=== PATIENT | female | born 1970 | race Caucasian/White ===

== ENCOUNTER 2018-09-25 19:24 | Observation (INO) | payer OTHER ==
--- NOTE | 2018-09-25 19:41 | Emergency Department Record ---
History of Present Illness - General Chief Complaint: Overdose Stated Complaint: TOOK TOO MANY OF HER MEDS Time Seen by Provider: 09/25/18 19:26 Source: Patient Mode of Arrival: Ambulatory Limitations: No limitations - History of Present Illness Initial Comments: 47 yo female presents to ED for evaluation after taking approximately 10 tablets of celexa this evening while having a disagreement with her significant other. Patient denies suicide attempt, when asked if she was trying to harm herself reports "I don't know, I think it was pretty stupid". Patient reports a history of depression, denies health problems at her baseline. MD Complaint: Intentional overdose Onset/Timin -: Hour(s) - [place] Coma Scale Eye Response: (4) Open spontaneously Motor Response: (6) Obeys commands Verbal Response: (5) Oriented Noah Total: 15 Substance Ingested: Celexa Number of Pills Ingested: 10 Time of Ingestion: 05:00 - Detail Intent: Unwilling to say How Overdose Was Discovered: Family/friend present at time Context: Accidental Overdose: Other Context: Intentional Overdose: Relationship problems Treatments Prior to Arrival: None - Related Data Home Medications Medication Instructions Recorded Confirmed Last Taken Citalopram Hydrobromide 10 mg PO DAILY 09/25/18 09/25/18 09/25/18 [Citalopram HBr] Allergies Allergy/AdvReac Type Severity Reaction Status Date / Time No Known Drug Allergies Allergy Verified 09/25/18 19:40 Review of Systems Constitutional: Denies: Chills, Fever, Malaise, Night sweats Eyes: Denies: Eye discharge, Eye pain ENT: Denies: Congestion, Ear pain, Epistaxis Respiratory: Denies: Cough, Dyspnea Cardiovascular: Denies: Chest pain, Dyspnea on exertion Endocrine: Denies: Fatigue, Heat or cold intolerance Gastrointestinal: Denies: Abdominal pain, Nausea, Vomiting Genitourinary: Denies: Incontinence, Retention Musculoskeletal: Denies: Arthralgia, Back pain, Gout, Joint swelling Skin: Denies: Bruising, Change in color Neurological: Denies: Abnormal gait, Confusion, Headache, Seizure Psychiatric: Reports: Depression. Denies: Anxiety Hematological/Lymphatic: Denies: Anemia, Blood Clots Physical Exam - General General Appearance: Alert, Oriented x3, Cooperative, Mild distress Limitations: No limitations - Head Head exam: Atraumatic, Normocephalic, Normal inspection Head exam detail: negative: Abrasion, Contusion, Thompson's sign, General tenderness, Hematoma, Laceration - Eye Eye exam: Normal appearance. negative: Conjunctival injection, Periorbital swelling, Periorbital tenderness, Scleral icterus - ENT Ear exam: negative: Auricular hematoma, Auricular trauma Nasal Exam: negative: Active bleeding, Discharge, Dried blood, Foreign body Mouth exam: negative: Drooling, Laceration, Muffled voice, Tongue elevation - Neck Neck exam: Normal inspection. negative: Meningismus, Tenderness - Respiratory Respiratory exam: Normal lung sounds bilaterally. negative: Rales, Respiratory distress, Rhonchi, Stridor - Cardiovascular Cardiovascular Exam: Regular rate, Normal rhythm, Normal heart sounds - GI/Abdominal GI/Abdominal exam: Soft. negative: Rebound, Rigid, Tenderness - Rectal Rectal exam: Deferred - exam: Deferred - Extremities Extremities exam: Normal inspection. negative: Pedal edema, Tenderness - Back Back exam: Denies: CVA tenderness (R), CVA tenderness (L) - Neurological Neurological exam: Alert, Normal gait, Oriented X3 - Psychiatric Psychiatric exam: Normal affect, Normal mood - Skin Skin exam: Normal color. negative: Abrasion Type of lesion: negative: abrasion Course - Reevaluation(s) Reevaluation #1: 09/25/18 19:50 EKG: NSR 94 Normal intervals Normal axis No acute ST-T changes are present on examination. Reevaluation #2: 09/25/18 20:31 Laboratory studies were reviewed and are grossly unremarkable for an acute process. Reevaluation #3: 09/25/18 20:53 Case was discussed with Kimberly Borja NP, will accept admission for medical clearance as the half-life for citalapram is approximately 35 hours followed by transfer for psychiatric evaluation likely tomorrow if medically cleared. Patient is resting comfortably at this time, updated on all results. Application has been completed by the patient's SO Certification completed by myself. Will admit with 1:1 monitoring. Medical Decision Making - Lab Data Result diagrams: 09/25/18 19:48 09/25/18 19:48 Disposition Disposition: Admit Clinical Impression: Intentional overdose of selective serotonin reuptake inhibitor (SSRI) Qualifiers: Encounter type: initial encounter Qualified Code(s): T43.222A - Poisoning by selective serotonin reuptake inhibitors, intentional self-harm, initial encounter Disposition: Still a Patient at [facility] Decision to Admit: Admit from ER Decision to Admit Date: 09/25/18 Decision to Admit Time: 20:54 Time of Disposition: 20:54 Quality - Quality Measures Quality Measures: N/A - Blood Pressure Screening Does Patient Have Any of the Following: No Blood Pressure Classification: Pre-Hypertensive BP Reading Systolic Measurement: 124 Diastolic Measurement: 75 Screening for High Blood Pressure: < Pre-Hypertensive BP, F/U Documented > [ G8950] Pre-Hypertensive Follow-up Interventions: Referral to alternative/primary care provider.
[2018-09-25 19:55] LABS: BASO % 0.5 % (0-6); GRAN % 64.3 % (47-80); HEMATOCRIT 38.2 % (35.0-47.0); HEMOGLOBIN 13.2 gm/dl (11.6-16.0); LYMPH % 23.4 % (16-45); MEAN CELL VOLUME 89.3 fl (81-97); MEAN CORPUSCULAR HEMOGLOBIN 30.8 pg (27-33); MEAN CORPUSCULAR HGB CONC 34.6 g/dl (32-36); MEAN PLATELET VOLUME 10.2 fl (7.4-10.4); MONO % 9.8 % (0-9); PLATELET COUNT 250 K/uL (130-400); RED BLOOD COUNT 4.28 M/uL (3.80-5.40); RED CELL DISTRIBUTION WIDTH 12.3 % (11.5-14.5); WHITE BLOOD COUNT W/O DIFF 6.4 K/uL (4.2-12.2)
[2018-09-25 20:08] LABS: BLOOD UREA NITROGEN 13 mg/dL (6-20); CREATININE 0.7 mg/dL (0.5-0.9); EST GLOMERULAR FILTRATION RATE > 60 mL/min
[2018-09-25 20:09] LABS: TOTAL PROTEIN 7.5 g/dL (6.6-8.7)
[2018-09-25 20:11] LABS: GLUCOSE,RANDOM 102 mg/dL (74-109)
[2018-09-25 20:14] LABS: ALB/GLOB RATIO 1.6 (1.1-1.8); ALBUMIN 4.6 g/dL (4.0-5.0); ALKALINE PHOSPHATASE 53 U/L (35-104); ALT/SGPT 23 U/L (<33); AST/SGOT 22 U/L (10.0-35.0)
[2018-09-25 20:15] LABS: ACETAMINOPHEN < 5.0 ug/mL (10.0-30.0); SALICYLATE 0.6 mg/dL (2.8-20)
[2018-09-25 20:25] LABS: THYROID STIMULATING HORMONE 2.13 uIU/mL (0.270-4.20)
[2018-09-25 20:43] LABS: AMPHETAMINE SCREEN URINE NOT DETECTED; BARBITURATE SCREEN URINE NOT DETECTED; BENZODIAZEPINE SCREEN URINE NOT DETECTED; COCAINE SCREEN URINE NOT DETECTED; METHADONE SCREEN URINE NOT DETECTED; METHAMPHETAMINE SCREEN NOT DETECTED; OPIATE SCREEN URINE NOT DETECTED; OXYCODONE SCREEN URINE NOT DETECTED; PHENCYCLIDINE SCREEN URINE NOT DETECTED; PROPOXYPHENE SCREEN URINE NOT DETECTED; THC SCREEN URINE NOT DETECTED; TRICYCLIC ANTIDEPRESSANT SCRN NOT DETECTED
[2018-09-26] MEDS: ACETAMINOPHEN 500 MG TABLET PO PRN ×2 (02:42→10:59)
[2018-09-26 09:26] LABS: BASO % 0.4 % (0-6); EOS % 1.8 % (0-6); GRAN % 67.8 % (47-80); HEMATOCRIT 39.2 % (35.0-47.0); HEMOGLOBIN 13.4 gm/dl (11.6-16.0); LYMPH % 23.6 % (16-45); MEAN CELL VOLUME 90.1 fl (81-97); MEAN CORPUSCULAR HEMOGLOBIN 30.8 pg (27-33); MEAN CORPUSCULAR HGB CONC 34.2 g/dl (32-36); MEAN PLATELET VOLUME 10.3 fl (7.4-10.4); MONO % 6.4 % (0-9); PLATELET COUNT 255 K/uL (130-400); RED BLOOD COUNT 4.35 M/uL (3.80-5.40); RED CELL DISTRIBUTION WIDTH 12.4 % (11.5-14.5)
[2018-09-26 09:34] LABS: ALB/GLOB RATIO 1.5 (1.1-1.8); ALBUMIN 4.4 g/dL (4.0-5.0); ALKALINE PHOSPHATASE 53 U/L (35-104); ALT/SGPT 18 U/L (<33); AST/SGOT 21 U/L (10.0-35.0); BLOOD UREA NITROGEN 13 mg/dL (6-20); CREATININE 0.6 mg/dL (0.5-0.9); EST GLOMERULAR FILTRATION RATE > 60 mL/min; GLUCOSE,RANDOM 204 mg/dL (74-109); TOTAL PROTEIN 7.3 g/dL (6.6-8.7)
--- NOTE | 2018-09-26 10:50 | History & Physical ---
History of Present Illness - Date of Service Date of Service for History & Physical: 09/26/18 - History of Present Illness Admitting Diagnosis: Intentional SSRI overdose History of Present Illness: 47 year old female patient presented to ED for evaluation after taking 10 tablets of 10mg Celexa [employer]. Patient states she was having an argument with her significant other. Patient denied suicidal ideations or attempt at that time, stating she wasn't sure what her intentions were for taking the tablets. Patient denied any nausea, vomiting, abdominal pain, palpitations, tachycardia, shaking, or headache. Patient's past medical history is significant for depression, with no previous inpatient psych admits or suicidal attempts. PCP: Danette ROY ED Course: EKG: NSR rate 94; normal intervals; normal axis; no acute ST-T changes CBC, CMP, alcohol, acetaminophen, salicylates, and urine drug screen all negative Asymptomatic 09/26/18: Patient A&O x 4, ambulating in room. Patient cooperative with staff. Patient denies any suicidal thoughts or ideations at this time. Patient remains asymptomatic, VS stable. Poison control contacted and states patient is safe to medically clear at this time if she has remained asymptomatic. A petition and cert was completed by ED staff upon arrival. Patient has been placed on 1:1 safety observation. Currently working on psychiatric placement for patient at this time. Travel Screening - Travel/Exposure Within Last 30 Days Have you traveled within the last 30 days?: No - Travel/Exposure Within Last Year Have you traveled outside the [place] in the last year?: No - Additonal Travel Details Have you been exposed to anyone with a communicable illness?: No - Travel Symptoms Symptom Screening: None Review of Systems Reviewed: No additional complaints except as noted below Constitutional: Denies: Chills, Fever, Malaise, Night sweats Eyes: Denies: Eye discharge, Eye pain ENT: Denies: Congestion, Ear pain, Epistaxis Respiratory: Denies: Cough, Dyspnea Cardiovascular: Denies: Chest pain, Dyspnea on exertion Endocrine: Denies: Fatigue, Heat or cold intolerance Gastrointestinal: Denies: Abdominal pain, Nausea, Vomiting Genitourinary: Denies: Incontinence, Retention Musculoskeletal: Denies: Arthralgia, Back pain, Gout, Joint swelling Skin: Denies: Bruising, Change in color Neurological: Denies: Abnormal gait, Confusion, Headache, Seizure Psychiatric: Reports: Depression. Denies: Anxiety Hematological/Lymphatic: Denies: Anemia, Blood Clots Past Medical History - SOCIAL HISTORY Smoking Status: Never smoker Alcohol Use: None Drug Use: None - RESPIRATORY Hx Respiratory Disorders: No - CARDIOVASCULAR Hx Cardio Disorders: Yes Hx Irregular Heartbeat: Yes - NEURO Hx Neuro Disorders: No - GI Hx GI Disorders: No - Hx Genitourinary Disorders: No - ENDOCRINE Hx Endocrine Disorders: No - MUSCULOSKELETAL Hx Musculoskeletal Disorders: No - PSYCH Hx Psych Problems: Yes Hx Anxiety: Yes Hx Behavior Problems: No Hx Depression: Yes Hx Emotional Abuse: No Hx Sexual Abuse: No Hx Suicide Attempt: No Major Depressive Episode: No Feelings of Hopelessness: No - HEMATOLOGY/ONCOLOGY Hx Hematology/Oncology Disorders: No Family Medical History Any Significant Family History?: Yes Hx Anxiety: Mother Hx Cancer: Father Hx Depression: Mother, Brother/Sister Hx Heart Disease: Father Hx Stroke: Father H&P Meds/Allergies - Allergies Allergies: Allergies Allergy/AdvReac Type Severity Reaction Status Date / Time No Known Drug Allergies Allergy Verified 09/25/18 19:40 - Home Medications Home Medications Medication Instructions Recorded Confirmed Last Taken Citalopram Hydrobromide 10 mg PO DAILY 09/25/18 09/25/18 09/25/18 [Citalopram HBr] - Active Medications Active Medications: Current Medications Acetaminophen (Tylenol 500mg Tab) 1,000 mg PO Q6H PRN PRN Reason: HEADACHE Last Admin: 09/26/18 02:42 Dose: 1,000 mg Physical Exam - Vital Signs Vital Signs: Vital Signs - Last 24 Hrs Temp Pulse Pulse Resp BP BP Pulse Ox 09/26/18 09:00 98.3 F 86 18 130/74 96 09/25/18 22:11 98.2 F 83 16 126/69 96 09/25/18 21:38 80 12 124/75 96 09/25/18 20:55 82 14 132/80 96 09/25/18 19:31 98.1 F 63 16 129/75 97 - General General Appearance: Alert, Oriented x3, Cooperative, No acute distress, Anxious Limitations: No limitations - Head Head exam: Atraumatic, Normocephalic, Normal inspection Head exam detail: negative: Abrasion, Contusion, Thompson's sign, General tenderness, Hematoma, Laceration - Eye Eye exam: Normal appearance. negative: Conjunctival injection, Periorbital swelling, Periorbital tenderness, Scleral icterus - ENT ENT exam: Mucous membranes moist Ear exam: Normal external inspection. negative: Auricular hematoma, Auricular trauma Nasal Exam: negative: Active bleeding, Discharge, Dried blood, Foreign body Mouth exam: Normal external inspection. negative: Drooling, Laceration, Muffled voice, Tongue elevation - Neck Neck exam: Normal inspection. negative: Meningismus, Tenderness - Respiratory Respiratory exam: Normal lung sounds bilaterally. negative: Rales, Respiratory distress, Rhonchi, Stridor - Cardiovascular Cardiovascular Exam: Regular rate, Normal rhythm, Normal heart sounds Peripheral Pulses: 2+: Radial (R), Radial (L) - GI/Abdominal GI/Abdominal exam: Soft. negative: Rebound, Rigid, Tenderness - Rectal Rectal exam: Deferred - exam: Deferred - Extremities Extremities exam: Normal inspection. negative: Pedal edema, Tenderness - Back Back exam: Denies: CVA tenderness (R), CVA tenderness (L) - Neurological Neurological exam: Alert, Normal gait, Oriented X3 - Psychiatric Psychiatric exam: Normal affect, Normal mood - Skin Skin exam: Normal color. negative: Abrasion Type of lesion: negative: abrasion Results - Labs Result Diagrams: 09/26/18 09:10 09/26/18 09:10 Labs Last 24 Hours: Laboratory Results - last 24 hr 09/25/18 09/25/18 09/25/18 19:48 19:48 20:07 WBC 6.4 RBC 4.28 Hgb 13.2 Hct 38.2 MCV 89.3 MCH 30.8 MCHC 34.6 RDW 12.3 Plt Count 250 MPV 10.2 Gran % 64.3 Lymphocytes % 23.4 Monocytes % 9.8 H Eosinophils % 2.0 Basophils % 0.5 Sodium 142 Potassium 3.7 Chloride 104 Carbon Dioxide 26.0 Anion Gap 12.0 BUN 13 Creatinine 0.7 Estimated GFR > 60 Random Glucose 102 Calcium 9.3 Total Bilirubin 0.20 AST 22 ALT 23 Alkaline Phosphatase 53 Total Protein 7.5 Albumin 4.6 Globulin 2.9 Albumin/Globulin Ratio 1.6 TSH 2.13 Salicylates 0.6 L Urine Opiates Screen Not detected Ur Oxycodone Screen Not detected Urine Methadone Screen Not detected Ur Propoxyphene Screen Not detected Acetaminophen < 5.0 L Ur Barbituates Screen Not detected Ur Tricyclics Screen Not detected Ur Phencyclidine Scrn Not detected Ur Amphetamine Screen Not detected U Methamphetamines Scrn Not detected U Benzodiazepines Scrn Not detected Urine Cocaine Screen Not detected Urine Cannabis Screen Not detected Ethyl Alcohol 0.000 09/26/18 09/26/18 09:10 09:10 WBC 5.0 RBC 4.35 Hgb 13.4 Hct 39.2 MCV 90.1 MCH 30.8 MCHC 34.2 RDW 12.4 Plt Count 255 MPV 10.3 Gran % 67.8 Lymphocytes % 23.6 Monocytes % 6.4 Eosinophils % 1.8 Basophils % 0.4 Sodium 141 Potassium 3.8 Chloride 102 Carbon Dioxide 27.0 Anion Gap 12.0 BUN 13 Creatinine 0.6 Estimated GFR > 60 Random Glucose 204 H Calcium 9.4 Total Bilirubin 0.40 AST 21 ALT 18 Alkaline Phosphatase 53 Total Protein 7.3 Albumin 4.4 Globulin 2.9 Albumin/Globulin Ratio 1.5 TSH Salicylates Urine Opiates Screen Ur Oxycodone Screen Urine Methadone Screen Ur Propoxyphene Screen Acetaminophen Ur Barbituates Screen Ur Tricyclics Screen Ur Phencyclidine Scrn Ur Amphetamine Screen U Methamphetamines Scrn U Benzodiazepines Scrn Urine Cocaine Screen Urine Cannabis Screen Ethyl Alcohol VTE H&P Assessment - Risk for VTE Risk for VTE: No Risk Level: Low Risk Assessment Date: 09/26/18 Risk Assessment Time: 10:51 VTE Orders Placed or Will Be Placed: No VTE Reason for No Prophylaxis: Not Indicated Plan - Detailed Diagnosis and Plan (1) Intentional overdose of selective serotonin reuptake inhibitor (SSRI) Current Visit: Yes Status: Acute Qualifiers: Encounter type: initial encounter Qualified Code(s): T43.222A - Poisoning by selective serotonin reuptake inhibitors, intentional self-harm, initial encounter Base Code: T43.222A - POISN BY SLCTV SEROTONIN REUPTAKE INHIBTR, SELF-HARM, INIT Comment: 09/26/18: Intentional overdose of 10 tablets of 10mg Celexa 15 hours ago -CBC, CMP, acetaminophen, alcohol, salicylate, and urine drug screen negative -VS WNL -EKG WNL -Patient has remained asymptomatic -Petition and cert completed in ED -Patient placed on 1:1 safety observation -Patient denies suicidal thoughts or ideations -Working on psychiatric placement for patient at this time (2) DVT prophylaxis Current Visit: Yes Status: Acute Base Code: [id number] - Comment: 09/26/18: Patient low risk at this time -Encouraged continued ambulation in the halls and room (3) Full code status Current Visit: Yes Status: Acute Base Code: Z78.9 - OTHER SPECIFIED HEALTH STATUS Comment: 09/26/18: Patient is a full code this admission
--- NOTE | 2018-09-26 11:20 | Discharge Summary ---
Providers Discharge Summary Date: 09/26/18 Date of admission: 09/25/18 21:55 Expected Date of Discharge: 09/26/18 Attending physician: MARY CORLEY Primary care physician: YOLETTE MA D.O. Physical Exam - Vital Signs Vital Signs: Vital Signs - Last 24 Hrs Temp Pulse Pulse Resp BP BP Pulse Ox 09/26/18 09:00 98.3 F 86 18 130/74 96 09/25/18 22:11 98.2 F 83 16 126/69 96 09/25/18 21:38 80 12 124/75 96 09/25/18 20:55 82 14 132/80 96 09/25/18 19:31 98.1 F 63 16 129/75 97 - General General Appearance: Alert, Oriented x3, Cooperative, No acute distress Limitations: No limitations - Head Head exam: Atraumatic, Normocephalic, Normal inspection Head exam detail: negative: Abrasion, Contusion, Thompson's sign, General tenderness, Hematoma, Laceration - Eye Eye exam: Normal appearance. negative: Conjunctival injection, Periorbital swelling, Periorbital tenderness, Scleral icterus - ENT ENT exam: Mucous membranes moist Ear exam: Normal external inspection. negative: Auricular hematoma, Auricular trauma Nasal Exam: negative: Active bleeding, Discharge, Dried blood, Foreign body Mouth exam: Normal external inspection. negative: Drooling, Laceration, Muffled voice, Tongue elevation - Neck Neck exam: Normal inspection. negative: Meningismus, Tenderness - Respiratory Respiratory exam: Normal lung sounds bilaterally. negative: Rales, Respiratory distress, Rhonchi, Stridor - Cardiovascular Cardiovascular Exam: Regular rate, Normal rhythm, Normal heart sounds Peripheral Pulses: 2+: Radial (R), Radial (L) - GI/Abdominal GI/Abdominal exam: Soft. negative: Rebound, Rigid, Tenderness - Rectal Rectal exam: Deferred - exam: Deferred - Extremities Extremities exam: Normal inspection. negative: Pedal edema, Tenderness - Back Back exam: Denies: CVA tenderness (R), CVA tenderness (L) - Neurological Neurological exam: Alert, Normal gait, Oriented X3 - Psychiatric Psychiatric exam: Normal affect, Normal mood - Skin Skin exam: Normal color. negative: Abrasion Type of lesion: negative: abrasion Hospitalization - Hospitalization Admission Diagnosis: Intentional SSRI overdose - Problem List/Discharge Diagnosis (1) Intentional overdose of selective serotonin reuptake inhibitor (SSRI) Status: Acute Discharge Diagnosis: Encounter type: initial encounter Qualified Code(s): T43.222A - Poisoning by selective serotonin reuptake inhibitors, intentional self-harm, initial encounter Base Code: T43.222A - POISN BY SLCTV SEROTONIN REUPTAKE INHIBTR, SELF-HARM, INIT Comment: 09/26/18: Intentional overdose of 10 tablets of 10mg Celexa 15 hours ago -CBC, CMP, acetaminophen, alcohol, salicylate, and urine drug screen negative -VS WNL -EKG WNL -Patient has remained asymptomatic -Petition and cert completed in ED -Patient placed on 1:1 safety observation -Patient denies suicidal thoughts or ideations -Patient will be transferred to [facility] via EMS, admitting physician Dr. Ramu Alberto. (2) DVT prophylaxis Status: Acute Base Code: [id number] - Comment: 09/26/18: Patient low risk at this time -Encouraged continued ambulation in the halls and room -No prophylaxis needed upon dc as patient to resume normal activities (3) Full code status Status: Acute Base Code: Z78.9 - OTHER SPECIFIED HEALTH STATUS Comment: : Patient is a full code this admission - Hospitalization Course Disposition: Psychiatric Hospital Hospital Course: 47 year old female patient presented to ED for evaluation after taking 10 tablets of 10mg Celexa [employer]. Patient states she was having an argument with her significant other. Patient denied suicidal ideations or attempt at that time, stating she wasn't sure what her intentions were for taking the tablets. Patient denied any nausea, vomiting, abdominal pain, palpitations, tachycardia, shaking, or headache. Patient's past medical history is significant for depression, with no previous inpatient psych admits or suicidal attempts. PCP: Danette TRIVEDI- ED Course: EKG: NSR rate 94; normal intervals; normal axis; no acute ST-T changes CBC, CMP, alcohol, acetaminophen, salicylates, and urine drug screen all negative Asymptomatic 09/26/18: Patient A&O x 4, ambulating in room. Patient cooperative with staff. Patient denies any suicidal thoughts or ideations at this time. Patient remains asymptomatic, VS stable. Poison control contacted and states patient is safe to medically clear at this time if she has remained asymptomatic. A petition and cert was completed by ED staff upon arrival. Patient has been placed on 1:1 safety observation. Currently working on psychiatric placement for patient at this time. Update: Patient has been admitted to [facility], admitting physician Dr. Ramu Alberto. Patient will be transferred via EMS. Procedures: Cardiology Procedures 09/25/18 19:34 EKG NOW 09/26/18 08:20 Application Software Developer .Continuous Abnormal Labs: Abnormal Lab Results 09/25/18 09/25/18 09/26/18 Range/Units 19:48 19:48 09:10 Monocytes % 9.8 H (0-9) % Random Glucose 204 H (74-109) mg/dL Salicylates 0.6 L (2.8-20) mg/dL Acetaminophen < 5.0 L (10.0-30.0) ug/mL Condition at Discharge: (1) Good VTE Discharge VTE Reason For No Overlap Therapy: Not Indicated Discharge Medications - Discharge Medications Home Medications: Ambulatory Orders Citalopram Hydrobromide [Citalopram HBr] 10 mg PO DAILY 09/25/18 [Last Taken ] Discharge Plan - Discharge Instructions Activity at Discharge: Resume Usual Activities As Tolerated Diet at Discharge: Regular Diet Quality Measures - Quality Measures Quality Measures: Documentation of Current Medications in Medical Record, Screening for High Blood Pressure and F/U Documented - Current Medications Quality Measure: Measure #130: Documentation of Current Medications Documentation of Current Medications: <Current Medications Documented/Reviewed> [G8427] - Blood Pressure Screening Quality Measure: Screening for High Blood Pressure and Follow-Up Documented Does Patient Have Any of the Following: No Blood Pressure Classification: Pre-Hypertensive BP Reading Systolic Measurement: 124 Diastolic Measurement: 75 Screening for High Blood Pressure: < Pre-Hypertensive BP, F/U Documented > [ G8950] Pre-Hypertensive Follow-up Interventions: Referral to alternative/primary care provider. - Elder Abuse Suspicion Index EASI Reference Information: John BUSH, Liz Chairez, Micah Alexander, Tim Conti.Development and validation of a tool to assist physicians identification of elder abuse: The Elder Abuse Suspicion Index (EASI ). Journal of Elder Abuse and Neglect, 2008; 20 (3): 276-300.
== END 2018-09-26 12:54 ==
LOC: ER 19:24 → MEDSURG 21:55
PROVIDERS: ADMIT Internal Medicine; ATTEND Internal Medicine
DX: T43.222A Poisoning by selective serotonin reuptake inhibitors, intentional self-harm, initial encounter (principal); F32.9 Major depressive disorder, single episode, unspecified
CPT/HCPCS: 99285 ×2; 85025 ×2; 80053 ×2; 84443; 80305; 93005; 93010; G0378 ×2; G0480 ×3; 80320; 80329; 99220